=== PATIENT | male | born 1950 | race Caucasian/White ===

== ENCOUNTER 2017-08-13 14:38 | Inpatient (IN) | payer MEDICARE, MEDICAID ==
[~2017-08-13] VITALS: Ht 172.7 cm; Wt 89.3 kg
[~2017-08-13 14:38] MED LIST: ASPI325T PO; EPZITAB4 PO; FURO1TAB93 PO; GABA400C5 PO; LEVO50IN PO; NEXI40CA PO; POTA8TAB27 PO; REST30CA PO; SUST600T4 PO
[2017-08-13 14:48] VITALS: BP 125/69; PULSE 76; RESP 17; TEMP 97.8
[2017-08-13] MEDS ORDERED: SODIUM CHLORIDE 0.9% FLUSH 10 ML FLUSH IVF PRN (15:30)
[2017-08-13 15:51] LABS: AUTOMATED NEUTROPHIL # 4.3 TH/MM3 (1.8-7.7); BASOPHIL % 0.7 % (0.0-2.0); EOSINOPHIL # 0.2 TH/MM3 (0-0.4); EOSINOPHIL % 3.3 % (0.0-4.0); HEMATOCRIT 38.5 % (39.0-51.0); HEMOGLOBIN 13.6 GM/DL (13.0-17.0); LYMPH % 18.4 % (9.0-44.0); LYMPHOCYTE # 1.1 TH/MM3 (1.0-4.8); MEAN CELL VOLUME 101.3 FL (80.0-100.0); MEAN CORPUSCULAR HEMOGLOBIN 35.9 PG (27.0-34.0); MEAN CORPUSCULAR HGB CONC 35.5 % (32.0-36.0); MEAN PLATELET VOLUME 8.1 FL (7.0-11.0); MONO % 7.9 % (0.0-8.0); MONOCYTE # 0.5 TH/MM3 (0-0.9); NEUT % 69.7 % (16.0-70.0); PLATELET COUNT 197 TH/MM3 (150-450); RED CELL DISTRIBUTION WIDTH 14.9 % (11.6-17.2); WHITE BLOOD COUNT 6.2 TH/MM3 (4.0-11.0)
[2017-08-13 15:59] VITALS: BP 131/72; PULSE 71; RESP 14; O2SAT 98
[2017-08-13] MEDS ORDERED: DEXTROSE 50% IN WATER 50 ML VIAL(D50) IV PUSH PRN (16:00)
[2017-08-13] MEDS ORDERED: GLUCAGON 1 MG/ML VIAL OTHER PRN (16:00)
[2017-08-13] MEDS ORDERED: SODIUM CHLORIDE 0.9% FLUSH 10 ML FLUSH IV FLUSH PRN ×2 (16:00→16:45)
--- NOTE | 2017-08-13 16:05 | RADRPT ---
EXAM DATE: 08/13/2017 3:48 PM EDT AGE/SEX: 67 years / Male INDICATIONS: LEFT SIDE WEAKNESS CLINICAL DATA: This is the patient's initial encounter. Patient reports that signs and symptoms have been present for 1 day and indicates a pain score of 0/10. MEDICAL/SURGICAL HISTORY: Cerebrovascular disease. Chronic obstructive pulmonary disease. Carcino ma, thyroid. LARYNX CA,HEPC HIV None. RADIATION DOSE: 56.35 CTDI (mGy) COMPARISON: [facility] [place]/O [place]AST, 11/03/2011. . Report was telephoned to Dr. Card via telephone at 4:03 PM. TECHNIQUE: CT of the head without contrast. Using automated exposure control and adjustment of the mA and/or kV according to patient size, radiation dose was kept as low as reasonably achievable to ob tain optimal diagnostic quality images. FINDINGS: Cerebrum: There is mild generalized atrophy and ventricles are normal given the degree of atrophy. M ild periventricular white matter change is present. No midline shift, mass lesion, hemorrhage or acu te infarction. No extraaxial fluid collections are seen. Posterior Fossa: The cerebellum and brainstem demonstrate no acute abnormality. The 4th ventricle is midline. The cerebellopontine angle is within normal limits. Extracranial: The visualized sinuses are clear. Skull: The calvaria is intact. No skull fracture. CONCLUSION: 1. No acute intracranial abnormality is identified. 2. Chronic findings include generalized atrophy and mild to moderate periventricular white matter lo w-attenuation characteristic of chronic microvascular ischemia. These white matter changes have progr essed since the prior study from 2011. Electronically signed by: Aris Michele MD 08/13/2017 4:03 PM EDT
[2017-08-13 16:07] LABS: INTERNATIONAL NORMALIZED RATIO 0.9 RATIO; PROTHROMBIN TIME - PATIENT 9.6 SEC (9.8-11.6)
[2017-08-13] MEDS: ASPIRIN 325 MG TAB PO SCH (16:07)
[2017-08-13] MEDS: CLOPIDOGREL 75 MG TAB PO SCH (16:09)
[2017-08-13] MEDS: SODIUM CHLOR 0.9% 1000 ML INJ 1,000 ML IV SCH (16:09)
--- NOTE | 2017-08-13 16:11 | MB ---
cc: Matthew Navarrete MD, PhD DATE: 08/13/2017 REASON FOR CONSULTATION: Stroke alert. HISTORY OF PRESENT ILLNESS: Mr. Campos is a 67-year-old man who has a history of previous stroke in the past. The patient takes aspirin 1 a day. He states about 3 days ago he began to experience weakness on the left side, the arm and the leg, it became acutely worse. Today around 1 o'clock he came to the ER. A stroke alert was therefore called. NIH stroke scale was 3. PAST MEDICAL HISTORY: He has a history of previous stroke, history of hypothyroidism, history of cancer of the thyroid and larynx, history of anxiety, history of HIV positive, hepatitis B, cataract surgery, thyroidectomy. MEDICATIONS: 1. Slow-K. 2. Lasix. 3. Restoril. 4. Sustiva. 5. Gabapentin. 6. Aspirin 325 mg daily. 7. Nexium. 8. Levothyroxine. 9. Epzicom. ALLERGIES: SULFA. NEUROLOGICAL EXAMINATION: VITAL SIGNS: Blood pressure 125/69, pulse 76, respiratory rate of 17, temperature 97 _ degrees. Higher cortical function is normal. Cranial nerves intact. Motor exam: He has mild weakness on the left arm and left leg rated at 4/5. Normal strength on the right. Reflexes symmetric. CT of the brain, official report is pending. There appears to be chronic ischemic changes, no acute change, no hemorrhage. LABORATORY DATA: Currently pending. ASSESSMENT: Right hemisphere stroke, apparently happening 3 days ago, now with worsening. He is not a TPA candidate because of the timeframe being at least 3 days into the stroke. Also, not a candidate for intervention. His creatinine was 1.9, therefore, would not recommend proceeding with a CT angiogram. RECOMMENDATIONS: Start Plavix 75 mg daily. Continue aspirin for now. We will check MRI/MRA brain, carotid ultrasound, echocardiogram, monitor cardiac telemetry, rule out atrial fibrillation. Also, check a lipid panel. Matthew Navarrete MD, PhD SANDEEP/TL , 03:48 PM , 04:10 PM
[2017-08-13 16:22] LABS: BICARBONATE 24.6 MEQ/L (21.0-32.0); CALCIUM 10.3 MG/DL (8.5-10.1); CREATININE 1.87 MG/DL (0.60-1.30)
[2017-08-13 16:25] LABS: TROPONIN I 0.05 NG/ML (0.02-0.05)
[2017-08-13] MEDS ORDERED: POTA8TAB PO (16:36)
[2017-08-13] MEDS ORDERED: EPZITAB3 PO (16:36)
[2017-08-13] MEDS ORDERED: REST30CA PO (16:36)
[2017-08-13] MEDS ORDERED: NEXI40CA PO (16:36)
[2017-08-13] MEDS ORDERED: ASPI1TAB57 PO (16:36)
[2017-08-13] MEDS ORDERED: SUST600T PO (16:36)
[2017-08-13] MEDS ORDERED: LEVO200T4 PO (16:36)
[2017-08-13] MEDS ORDERED: FURO1TAB60 PO (16:36)
--- NOTE | 2017-08-13 16:37 | PD ---
HPI . Left-sided weakness Chief Complaint: Neuro Symptoms/ Deficits Time Seen by Provider: 15:15 Travel History International Travel<30 days: No Contact w/Intl Traveler<30days: No Traveled to known affect area: No History of Present Illness HPI Patient presents with chief complaint of left-sided weakness. The triage nurse got the history that this is been going on for several days. The patient swears to me that he had the acute onset of symptoms at 1 PM today. However, he has subsequently told the neurologist that his symptoms really did start a few days ago. Nonetheless, he presents with left-sided extremity weakness without facial weakness. He does not have any dysarthria. His symptoms are very mild. He states that he had cleaned his house today and then "collapsed" because of left leg weakness. That is when he decided to come in. PFSH Past Medical History Arthritis: Yes Anxiety: Yes Cancer: Yes (THYROID, LARYNX) Cardiovascular Problems: No Chemotherapy: Yes COPD: Yes Cerebrovascular Accident: Yes (RIGHT SIDE WEAKNESS) Diabetes: No Endocrine: Yes (PARATHYROID REMOVED) Genitourinary: Yes Headaches: Yes Immune Disorder: Yes (HIV POSTIVE, HEP B) Implanted Vascular Access Dvce: Yes Kidney Stones: Yes Musculoskeletal: Yes Neurologic: Yes Psychiatric: Yes Reproductive: No Respiratory: Yes Migraines: No Renal Failure: No Seizures: No Thyroid Disease: Yes (CANCER/ REMOVED) ?: Not Past Surgical History Abdominal Surgery: No Cardiac Surgery: No Ear Surgery: No Endocrine Surgery: Yes (THYROIDECTOMY,(MULTI)) Eye Surgery: Yes (LEFT CATARACT EXTRACT) Genitourinary Surgery: Yes (MULTI ESWL) Gynecologic Surgery: No Oral Surgery: Yes (T & A, BX LARYNX) Pacemaker: No Thoracic Surgery: No Other Surgery: Yes (2 TUMORS REMOVED FROM EACH SIDE OF NECK, PARATHYROID GLAND REMOVAL) Social History Alcohol Use: No Tobacco Use: No Substance Use: No Allergies-Medications (Allergen,Severity, Reaction): Coded Allergies: Sulfa (Sulfonamide Antibiotics) (Unverified Allergy, Severe, TONGUE SWELLS , 08/13/17) Reported Meds & Prescriptions Reported Meds & Active Scripts Active Reported Potassium Chloride ER 8 meq (Potassium Chloride) 8 Meq Tabcr 8 Meq PO DAILY Lasix (Furosemide) 40 Mg Tab 40 Mg PO DAILY Restoril 30 mg (Temazepam) 30 Mg Cap 30 Mg PO HS PRN Sustiva (Efavirenz) 600 Mg Tab 600 Mg PO HS Aspirin 325 mg (Aspirin) 325 Mg Tab 325 Mg PO HS Levothyroxine Sodium 200 Mcg Tab 200 Mcg PO DAILY Nexium (Esomeprazole Magnesium) 40 Mg Cap 40 Mg PO HS Epzicom 600/300 (Abacavir/Lamivudine) Tab 1 Tab PO HS Review of Systems Except as stated in HPI: all other systems reviewed are Neg HENT: Positive: Headaches Physical Exam Narrative GENERAL: Awake and alert and fully oriented. SKIN: warm/dry. HEAD: Normocephalic. Atraumatic. EYES: Pupils equal and round. Extraocular movements are intact. ENT: Mucous membranes pink and moist. NECK: Supple. Full range of motion without pain.. CARDIOVASCULAR: Regular rate and rhythm. RESPIRATORY: No accessory muscle use. Clear to auscultation. Breath sounds equal bilaterally. GASTROINTESTINAL: Abdomen soft. Nontender. Bowel sounds present. Nondistended. MUSCULOSKELETAL: No obvious deformities. Normal muscle tone. NEUROLOGICAL: Awake and alert. Normal wrinkling of his forehead, closing of his eyes, smiling and protruding of his tongue. Muscular strength in the left upper and left lower extremities is slightly diminished compared to the right. I would rated 4/5. PSYCHIATRIC: Appropriate mood and affect; insight and judgment normal. Data Data Last Documented VS Vital Signs Date Time Temp Pulse Resp B/P (MAP) Pulse Ox O2 Delivery O2 Flow Rate FiO2 08/13/17 15:59 99 Room Air 08/13/17 15:59 71 14 131/72 (91) 08/13/17 14:48 97.8 Orders Orders Electrocardiogram (08/13/17 15:17) Prothrombin Time / Inr (Pt) (08/13/17 15:17) Act Partial Throm Time (Ptt) (08/13/17 15:17) Complete Blood Count With Diff (08/13/17 15:17) Basic Metabolic Panel (Bmp) (08/13/17 15:17) Troponin I (08/13/17 15:17) Ct Brain W/O Iv Contrast(Rout) (08/13/17 15:17) Ecg Monitoring (08/13/17 15:17) Iv Access Insert/Monitor (08/13/17 15:17) Oximetry (08/13/17 15:17) Sodium Chloride 0.9% Flush (Ns Flush) (08/13/17 15:30) Diet Npo (08/13/17 Dinner) Activity Bed Rest (08/13/17 ) Type And Screen (08/13/17 15:22) Cta Brain W Iv Contrast W 3d (08/13/17 15:22) Cta Neck W Iv Contrast W 3d (08/13/17 15:22) Consult Neurology (08/13/17 ) Neuro Checks Q2HX12,Q4H (08/13/17 15:22) Nursing Bedside Swallow Assess .ONCE (08/13/17 15:22) NPO (08/13/17 15:22) (Hub Use Only)Inp Phy Cons/Ref (08/13/17 ) Fibrinogen (08/13/17 15:17) I-Stat Profile (08/13/17 15:17) Nih Stroke Scale - Nihss .On admission and discharge (08/13/17 15:48) Neuro Checks Q4H (08/13/17 15:48) Case Management Consult (08/13/17 ) Activity Bed Rest (08/13/17 15:48) Nursing Bedside Swallow Assess .ONCE (08/13/17 15:48) Scd Bilateral/Knee High LILIANE.QSHIFT (08/13/17 15:48) Hemoglobin (Hgb) A1c (08/13/17 15:48) Lipid Profile (08/14/17 06:00) Us Carotid Arteries Comp Bilat (08/13/17 ) Mra Brain W/O Contrast (Cow) (08/13/17 ) Mri Brain W/O Contrast (08/13/17 ) Echo 2d Comp With Doppler (08/13/17 ) Resp Oxygen Nc Stroke (08/13/17 ) ^ Hold Medication (08/13/17 15:48) Sodium Chloride 0.9% Flush (Ns Flush) (08/13/17 21:00) Sodium Chloride 0.9% Flush (Ns Flush) (08/13/17 16:00) Sodium Chlor 0.9% 1000 Ml Inj (Ns 1000 M (08/13/17 15:48) Aspirin (Aspirin) (08/13/17 16:00) Clopidogrel (Plavix) (08/13/17 16:00) Bedside Glucose LILIANE.CSUGAR (08/13/17 15:48) ^ Discontinue Insulin Orders (08/13/17 15:48) Insulin Aspart Supplemtl Scale (Novolog (08/13/17 17:00) Dextrose 50% In Fabiano (Vial) Inj (D50w (Vi (08/13/17 16:00) Glucagon Inj (Glucagon Inj) (08/13/17 16:00) Consult Rehab Medicine (08/13/17 15:48) Machine Farmworker / Telemetry LILIANE.Q8H (08/13/17 15:48) Consult Stroke Navigator (08/13/17 ) (Hub Use Only)Inp Phy Cons/Ref (08/13/17 ) Labs Laboratory Tests Test 08/13/17 15:24 White Blood Count 6.2 TH/MM3 Red Blood Count 3.80 MIL/MM3 Hemoglobin 13.6 GM/DL Bedside Hemoglobin 12.2 G/DL Hematocrit 38.5 % Bedside Hematocrit 36.0 % Mean Corpuscular Volume 101.3 FL Mean Corpuscular Hemoglobin 35.9 PG Mean Corpuscular Hemoglobin Concent 35.5 % Red Cell Distribution Width 14.9 % Platelet Count 197 TH/MM3 Mean Platelet Volume 8.1 FL Neutrophils (%) (Auto) 69.7 % Lymphocytes (%) (Auto) 18.4 % Monocytes (%) (Auto) 7.9 % Eosinophils (%) (Auto) 3.3 % Basophils (%) (Auto) 0.7 % Neutrophils # (Auto) 4.3 TH/MM3 Lymphocytes # (Auto) 1.1 TH/MM3 Monocytes # (Auto) 0.5 TH/MM3 Eosinophils # (Auto) 0.2 TH/MM3 Basophils # (Auto) 0.0 TH/MM3 CBC Comment DIFF FINAL Differential Comment Prothrombin Time 9.6 SEC Prothromb Time International Ratio 0.9 RATIO Activated Partial Thromboplast Time 26.5 SEC Fibrinogen 392 mg/dL Bedside Sodium 142 MMOL/L Blood Urea Nitrogen 23 MG/DL Creatinine 1.87 MG/DL Random Glucose 108 MG/DL Calcium Level 10.3 MG/DL Sodium Level 143 MEQ/L Potassium Level 3.1 MEQ/L Chloride Level 109 MEQ/L Carbon Dioxide Level 24.6 MEQ/L Bedside Potassium 3.1 MMOL/L Bedside Chloride 109 MMOL/L Anion Gap 9 MEQ/L Bedside Blood Urea Nitrogen 24 MG/DL Bedside Creatinine 1.9 MG/DL Estimat Glomerular Filtration Rate 36 ML/MIN Bedside Glucose 108 MG/DL Troponin I 0.05 NG/ML MDM Medical Decision Making Medical Screen Exam Complete: Yes Emergency Medical Condition: Yes Differential Diagnosis Differential diagnosis includes but is not limited to TIA, CVA, brain tumor, migraine, anxiety Narrative Course This patient presents with left-sided weakness. I gave him an NIH stroke score of 3. A stroke alert was called because he told me that his symptoms started 2 hours prior to presentation. The patient was evaluated urgently by Dr. Navarrete. Dr. Navarrete recommends aspirin and Plavix. He has ordered these. Last Impressions Head CT 08/13/17 1517 Signed Impressions: CONCLUSION: 1. No acute intracranial abnormality is identified. 2. Chronic findings include generalized atrophy and mild to moderate periventr icular white matter low-attenuation characteristic of chronic microvascular isc hemia. These white matter changes have progressed since the prior study from 28 02. CBC & BMP Diagram 08/13/17 15:24 Calcium Level 10.3 H I will give him a dose of oral potassium. Critical Care Narrative Aggregate critical care time was 45 minutes. Time to perform other separately billable procedures was not included in the critical care time. My time did not include minutes spent treating any other patients simultaneously or on activities that did not directly contribute to the patient's treatment. The services I provided to this patient were to treat and/or prevent clinically significant deterioration due to stroke alert I provided critical care services requiring my management, as noted below: Chart data review, documentation time, medication orders and management, vital sign assessments/reviewing monitor data, ordering and reviewing lab tests, ordering and interpreting/reviewing x-rays and diagnostic studies, care of the patient and discussion of the patient with the admitting physicians Physician Communication Physician Communication Dr. Navarrete and Dr. Gaming Diagnosis Primary Impression: CVA (cerebral vascular accident) Qualified Codes: I63.9 - Cerebral infarction, unspecified Admitting Information Admitting Physician Requests: Observation Condition: Stable Rehana Card MD Aug 13, 2017 16:37
--- NOTE | 2017-08-13 16:43 | HHI.HP ---
[facility] Tonja Knutson MD Admission Diagnosis Diagnoses: (1) Left-sided weakness (2) TIA (transient ischemic attack) (3) Neurological deficit present Chief Complaint: My left-sided got weaker Travel History International Travel<30 Days: No Contact w/Intl Traveler <30 Da: No Traveled to Known Affected Are: No History of Present Illness 67-year-old male with a history of HIV presented to the ED for evaluation of worsening symptoms of left-sided weakness including upper and lower extremities without any slurred speech. Patient states, over the past 3 days he has noted his left arm and leg to be weak however he has not seek any medical medical attention and patient has been able to ambulate until today when around 1 PM it got weaker to the point where patient collapsed because his left leg gave up on him. He denies any numbness associated with current symptom. However he reported some visual changes. When he presented to the ED a stroke alert was called, and neurology was consulted. Initial head CT without any intracranial abnormality. Of note, patient has a prior history of CVA but without any residual weakness. Review of Systems Except as stated in HPI: all other systems reviewed are Neg Past Family Social History Past Medical History Arthritis: Yes Anxiety: Yes Cancer: Yes (THYROID, LARYNX) Cardiovascular Problems: No Chemotherapy: Yes COPD: Yes Cerebrovascular Accident: Yes (RIGHT SIDE WEAKNESS) Endocrine: Yes (PARATHYROID REMOVED) Genitourinary: Yes Headaches: Yes Immune Disorder: Yes (HIV POSITIVE, HEP B) Implanted Vascular Access Dvce: Yes Kidney Stones: Yes Thyroid Disease: Yes (CANCER/ REMOVED) Past Surgical History Abdominal Surgery: No Cardiac Surgery: No Ear Surgery: No Endocrine Surgery: Yes (THYROIDECTOMY,(MULTI)) Eye Surgery: Yes (LEFT CATARACT EXTRACT) Genitourinary Surgery: Yes (MULTI ESWL) Gynecologic Surgery: No Oral Surgery: Yes (T & A, BX LARYNX) Pacemaker: No Thoracic Surgery: No Other Surgery: Yes (2 TUMORS REMOVED FROM EACH SIDE OF NECK, PARATHYROID GLAND REMOVAL) Reported Medications Potassium Chloride ER 8 meq (Potassium Chloride) 8 Meq Tabcr 8 Meq PO DAILY Lasix (Furosemide) 40 Mg Tab 40 Mg PO DAILY Restoril 30 mg (Temazepam) 30 Mg Cap 30 Mg PO HS PRN Sustiva (Efavirenz) 600 Mg Tab 600 Mg PO HS Aspirin 325 mg (Aspirin) 325 Mg Tab 325 Mg PO HS Levothyroxine Sodium 200 Mcg Tab 200 Mcg PO DAILY Nexium (Esomeprazole Magnesium) 40 Mg Cap 40 Mg PO HS Epzicom 600/300 (Abacavir/Lamivudine) Tab 1 Tab PO HS Allergies: Coded Allergies: Sulfa (Sulfonamide Antibiotics) (Unverified Allergy, Severe, TONGUE SWELLS , 08/13/17) Family History Denies any family history of heart disease, CVA Social History Alcohol Use: No Tobacco Use: No Substance Use: No Physical Exam Vital Signs Vital Signs Date Time Temp Pulse Resp B/P (MAP) Pulse Ox O2 Delivery O2 Flow Rate FiO2 08/13/17 15:59 99 Room Air 08/13/17 15:59 71 14 131/72 (91) 98 Room Air 08/13/17 14:48 97.8 76 17 125/69 (87) Physical Exam GENERAL: This is a well-nourished, well-developed patient, in no apparent distress. SKIN: No rashes, ecchymoses or lesions. Cool and dry. HEAD: Atraumatic. Normocephalic. No temporal or scalp tenderness. EYES: Pupils equal round and reactive. Extraocular motions intact. No scleral icterus. No injection or drainage. ENT: Nose without bleeding, purulent drainage or septal hematoma. Throat without erythema, tonsillar hypertrophy or exudate. Uvula midline. Airway patent. NECK: Trachea midline. No JVD or lymphadenopathy. Supple, nontender, no meningeal signs. CARDIOVASCULAR: Regular rate and rhythm without murmurs, gallops, or rubs. RESPIRATORY: Clear to auscultation. Breath sounds equal bilaterally. No wheezes , rales, or rhonchi. GASTROINTESTINAL: Abdomen soft, non-tender, nondistended. No hepato-splenomegaly , or palpable masses. No guarding. MUSCULOSKELETAL: Extremities without clubbing, cyanosis, or edema. No joint tenderness, effusion, or edema noted. No calf tenderness. Negative Homans sign bilaterally. NEUROLOGICAL: Awake and alert. Cranial nerves II through XII intact. Motor and sensory grossly within normal limits. Five out of 5 muscle strength in all muscle groups in the right. 3/5 in all muscle group tested in the left. Normal speech. Laboratory Laboratory Tests Test 08/13/17 15:24 White Blood Count 6.2 Red Blood Count 3.80 Hemoglobin 13.6 Bedside Hemoglobin 12.2 Hematocrit 38.5 Bedside Hematocrit 36.0 Mean Corpuscular Volume 101.3 Mean Corpuscular Hemoglobin 35.9 Mean Corpuscular Hemoglobin Concent 35.5 Red Cell Distribution Width 14.9 Platelet Count 197 Mean Platelet Volume 8.1 Neutrophils (%) (Auto) 69.7 Lymphocytes (%) (Auto) 18.4 Monocytes (%) (Auto) 7.9 Eosinophils (%) (Auto) 3.3 Basophils (%) (Auto) 0.7 Neutrophils # (Auto) 4.3 Lymphocytes # (Auto) 1.1 Monocytes # (Auto) 0.5 Eosinophils # (Auto) 0.2 Basophils # (Auto) 0.0 CBC Comment DIFF FINAL Differential Comment Prothrombin Time 9.6 Prothromb Time International Ratio 0.9 Activated Partial Thromboplast Time 26.5 Fibrinogen 392 Bedside Sodium 142 Blood Urea Nitrogen 23 Creatinine 1.87 Random Glucose 108 Calcium Level 10.3 Sodium Level 143 Potassium Level 3.1 Chloride Level 109 Carbon Dioxide Level 24.6 Bedside Potassium 3.1 Bedside Chloride 109 Anion Gap 9 Bedside Blood Urea Nitrogen 24 Bedside Creatinine 1.9 Estimat Glomerular Filtration Rate 36 Bedside Glucose 108 Troponin I 0.05 Result Diagram: 08/13/17 1524 08/13/17 1524 Imaging Last Impressions Head CT 08/13/17 1517 Signed Impressions: CONCLUSION: 1. No acute intracranial abnormality is identified. 2. Chronic findings include generalized atrophy and mild to moderate periventr icular white matter low-attenuation characteristic of chronic microvascular isc hemia. These white matter changes have progressed since the prior study from 28 02. Septic Shock Reassessment Septic shock perfusion: reassessment completed Caprini VTE Risk Assessment Caprini VTE Risk Assessment: Mod/High Risk (score >= 2) Caprini Risk Assessment Model Point Value = 1 Point Value = 2 Point Value = 3 Point Value = 5 Age 41-60 Minor surgery BMI > 25 kg/m2 Swollen legs Varicose veins or History of unexplained or recurrent spontaneous Oral contraceptives or hormone replacement Sepsis (< 1 month) Serious lung disease, including pneumonia (< 1 month) Abnormal pulmonary function Acute myocardial infarction Congestive heart failure (< 1 month) History of inflammatory bowel disease Medical patient at bed rest Age 61-74 Arthroscopic surgery Major open surgery (> 45 min) Laparoscopic surgery (> 45 min) Malignancy Confined to bed (> 72 hours) Immobilizing plaster cast Central venous access Age >= 75 History of VTE Family history of VTE Factor V Leiden Prothrombin [id number] Lupus anticoagulant Anticardiolipin antibodies Elevated serum homocysteine Heparin-induced thrombocytopenia Other congenital or acquired thrombophilia Stroke (< 1 month) Elective arthroplasty Hip, pelvis, or leg fracture Acute spinal cord injury (< 1 month) Prophylaxis Regimen Total Risk Factor Score Risk Level Prophylaxis Regimen 0-1 Low Early ambulation 2 Moderate Order ONE of the following: *Sequential Compression Device (SCD) *Heparin 5000 units SQ BID 3-4 Higher Order ONE of the following medications: *Heparin 5000 units SQ TID *Enoxaparin/Lovenox 40 mg SQ daily (WT < 150 kg, CrCl > 30 mL/min) *Enoxaparin/Lovenox 30 mg SQ daily (WT < 150 kg, CrCl > 10-29 mL/min) *Enoxaparin/Lovenox 30 mg SQ BID (WT < 150 kg, CrCl > 30 mL/min) AND/OR *Sequential Compression Device (SCD) 5 or more Highest Order ONE of the following medications: *Heparin 5000 units SQ TID (Preferred with Epidurals) *Enoxaparin/Lovenox 40 mg SQ daily (WT < 150 kg, CrCl > 30 mL/min) *Enoxaparin/Lovenox 30 mg SQ daily (WT < 150 kg, CrCl > 10-29 mL/min) *Enoxaparin/Lovenox 30 mg SQ BID (WT < 150 kg, CrCl > 30 mL/min) AND *Sequential Compression Device (SCD) Assessment and Plan Problem List: (1) TIA (transient ischemic attack) ICD Code: G45.9 - Transient cerebral ischemic attack, unspecified (2) Neurological deficit present ICD Code: R29.818 - Other symptoms and signs involving the nervous system (3) Left-sided weakness ICD Code: R53.1 - Weakness Assessment and Plan 67-year-old man with TIA Left-sided weakness Treat per ischemic CVA protocol Patient is not a candidate for TPA Head CT noted and reviewed by me without any intracranial abnormality Check brain MRI/MRA, carotid ultrasound, 2D echo Check lipid profile Start aspirin 325 mg daily and Plavix PT/OT consult for therapy Appreciate input from neurology Place Holter monitoring Acute on chronic kidney disease stage III Gentle IV fluid hydration, monitor BUN and creatinine and avoid all nephrotoxic drug Hypokalemia Replace electrolytes and monitor History of HIV Resume outpatient medications Hypothyroidism Resume Synthroid DVT prophylaxis: Bilateral SCDs Code Status Full code Discussed Condition With Patient, ED physician Panfilo Gaming MD Aug 13, 2017 16:43
[2017-08-13] MEDS ORDERED: METOCLOPRAMIDE HCL 10 MG/2 ML VIAL IV PUSH PRN (16:45)
[2017-08-13] MEDS ORDERED: POTASSIUM CHLORIDE 20 MEQ CONTROLLED RELEASE TAB PO ONE (16:45)
[2017-08-13] MEDS ORDERED: ACETAMINOPHEN 325 MG TAB PO PRN ×2 (16:45)
[2017-08-13] MEDS ORDERED: MAGNESIUM HYDROXIDE SUSP 30 ML CUP PO PRN (16:45)
[2017-08-13] MEDS ORDERED: NALOXONE HCL 0.4 MG/ML AMP IV PUSH PRN (16:45)
[2017-08-13] MEDS ORDERED: RESP: ALBUTEROL 2.5 MG/IPRATROPIUM 0.5 MG NEB (PRN) NEB ×2 (16:45→18:00)
[2017-08-13] MEDS: INSULIN ASPART SUPPLEMENTAL SCALE SQ SCH ×2 (17:00→20:51)
[2017-08-13 17:46] VITALS: BP 133/60; PULSE 66; RESP 14; TEMP 97.2; O2SAT 99
[2017-08-13] MEDS ORDERED: POTASSIUM CHLORIDE 10 MEQ CONTROLLED RELEASE TAB PO ONE (18:00)
[2017-08-13 19:49] VITALS: BP 178/84; PULSE 70; RESP 18; O2SAT 100
[2017-08-13 20:00] VITALS: BP 160/82; PULSE 62; RESP 18; TEMP 98.3; O2SAT 99
--- NOTE | 2017-08-13 20:59 | RADRPT ---
EXAM DATE: 08/13/2017 7:23 PM EDT AGE/SEX: 67 years / Male INDICATIONS: CVA. CLINICAL DATA: This is the patient's initial encounter. Patient reports that signs and symptoms have been present for 1 day and indicates a pain score of 0/10. MEDICAL/SURGICAL HISTORY: Hepatitis B. Hypertension. Carcinoma, thyroid. Thyroidectomy. COMPARISON: No prior [facility] exams available for comparison. TECHNIQUE: Multiplanar, multisequence examination of the brain was performed without contrast. FINDINGS: There are multiple small subcentimeter infarcts predominantly in the posterior right hemisphere invol ving both the occipital lobe and the right parietal lobe. Also several tiny infarcts in the upper lef t parietal lobe. There is no mass effect or midline shift. No hemorrhage is identified. Is no hydroce phalus or abnormal extra-axial fluid. There is moderate chronic ischemic changes in the periventricul ar white matter and mild chronic ischemic changes in the brainstem. CONCLUSION: 1. Numerous small subcentimeter infarcts in the posterior right hemisphere involving the parietal oc cipital lobe and also to a lesser extent in the upper left parietal lobe. No mass effect or hemorrhag e. Electronically signed by: Gareth Saeed MD 08/13/2017 8:58 PM EDT
[2017-08-13] MEDS ORDERED: SODIUM CHLORIDE 0.9% FLUSH 10 ML FLUSH IV FLUSH SCH (21:00)
[2017-08-13] MEDS: SODIUM CHLORIDE 0.9% FLUSH 10 ML FLUSH IV FLUSH SCH (21:04)
--- NOTE | 2017-08-13 21:28 | RADRPT ---
EXAM DATE: 08/13/2017 7:20 PM EDT AGE/SEX: 67 years / Male INDICATIONS: Stroke. CLINICAL DATA: This is the patient's initial encounter. Patient reports that signs and symptoms have been present for 1 day and indicates a pain score of 0/10. MEDICAL/SURGICAL HISTORY: Hepatitis B. Hypertension. Carcinoma, thyroid. Thyroidectomy. COMPARISON: No prior [place] exams available for comparison. TECHNIQUE: 3D [id number] MRA was performed. Source images, multiplanar STS MIP, and 3D volum e MIP reconstructions were reviewed. FINDINGS: There is excellent visualization of the major intracranial arteries out to the second-order branch ve ssels. There is no evidence for aneurysm, vessel truncation or stenosis, and no evidence for vascula r malformation. CONCLUSION: 1. Normal examination for a patient of this age. Electronically signed by: Gareth Saeed MD 08/13/2017 9:26 PM EDT
--- NOTE | 2017-08-13 21:31 | RADRPT ---
EXAM DATE: 08/13/2017 6:40 PM EDT AGE/SEX: 67 years / Male INDICATIONS: Fall at home. History of stroke. Left sided tingling and weakness. CLINICAL DATA: This is the patient's initial encounter. Patient reports that signs and symptoms have been present for 1 day and indicates a pain score of 0/10. MEDICAL/SURGICAL HISTORY: Stroke. Chronic obstructive pulmonary disease. HIV. Thyroid cancer . Peripheral neuropathy. Hepatitis B. Hepatitis C. Carotid endarterectomy. Left cataract extraction. Left eye prosthesis. Larynx biopsy. Parathyroidectomy. Chemotherapy. Radiation therapy. Neck tumor e xcision bilateral. COMPARISON: No prior [place] exams available for comparison. No external comparison. VELOCITY PARAMETERS: ICA/CCA Ratio: Right 2.9 , Left 1.4 ICA: Right 181 cm/sec, Left 182 cm/sec CCA: Right 63 cm/sec, Left 128 cm/sec ECA: Right 237 cm/sec, Left 128 cm/sec Vertebral: Right 68 cm/sec antegrade, Left 122 cm/sec antegrade FINDINGS: PSV ratio on the right is elevated to 2.9. There is elevated peak systolic velocity in both the left and right internal carotid arteries around 180 cm/s. Vertebral artery flows antegrade bilaterally. Th ere is mild to moderate visible plaque formation. CONCLUSION: Elevated peak systolic velocity ratio on the right could indicate a moderate stenosis. There is also elevated peak systolic velocities bilaterally in internal carotid arteries. More accurate degree and location of stenosis would be better evaluated with CTA carotids. Electronically signed by: Gareth Saeed MD 08/13/2017 9:29 PM EDT
[2017-08-14] VITALS: BP 162/85; PULSE 77; RESP 18; TEMP 97.6; O2SAT 98
[2017-08-14 03:42] VITALS: PULSE 66
[2017-08-14 04:00] VITALS: BP 156/74; PULSE 64; RESP 18; TEMP 98.1; O2SAT 98
[2017-08-14 05:27] LABS: AUTOMATED NEUTROPHIL # 3.8 TH/MM3 (1.8-7.7); BASOPHIL % 0.6 % (0.0-2.0); EOSINOPHIL # 0.2 TH/MM3 (0-0.4); EOSINOPHIL % 3.8 % (0.0-4.0); HEMATOCRIT 36.8 % (39.0-51.0); HEMOGLOBIN 12.5 GM/DL (13.0-17.0); LYMPH % 24.6 % (9.0-44.0); LYMPHOCYTE # 1.5 TH/MM3 (1.0-4.8); MEAN CELL VOLUME 101.2 FL (80.0-100.0); MEAN CORPUSCULAR HEMOGLOBIN 34.5 PG (27.0-34.0); MEAN CORPUSCULAR HGB CONC 34.1 % (32.0-36.0); MEAN PLATELET VOLUME 8.5 FL (7.0-11.0); MONO % 7.8 % (0.0-8.0); MONOCYTE # 0.5 TH/MM3 (0-0.9); NEUT % 63.2 % (16.0-70.0); PLATELET COUNT 191 TH/MM3 (150-450); RED BLOOD COUNT 3.63 MIL/MM3 (4.50-5.90); RED CELL DISTRIBUTION WIDTH 14.9 % (11.6-17.2)
[2017-08-14] MEDS ORDERED: LEVOTHYROXINE SODIUM 200 MCG TAB PO SCH (06:00)
[2017-08-14 06:07] LABS: ALT (GPT) 18 U/L (12-78); AST (GOT) 13 U/L (15-37); BICARBONATE 20.1 MEQ/L (21.0-32.0); BLOOD UREA NITROGEN 25 MG/DL (7-18); CALCIUM 9.7 MG/DL (8.5-10.1); CHLORIDE 110 MEQ/L (98-107); CHOLESTEROL 239 MG/DL (120-200); GLOMERULAR FILTRATION RATE 36 ML/MIN (>89); GLUCOSE,RANDOM 101 MG/DL (74-106); SODIUM (NA) 141 MEQ/L (136-145)
[2017-08-14] MEDS: SODIUM CHLOR 0.9% 1000 ML INJ 1,000 ML IV SCH (06:07)
[2017-08-14 06:10] LABS: ALKALINE PHOSPHATASE 180 U/L (45-117); CHOLESTEROL/ HDL RATIO 6.27 RATIO; HDL CHOLESTEROL 38.1 MG/DL (40.0-60.0); LDL CHOLESTEROL 134 MG/DL (0-99); TOTAL BILIRUBIN ADULT 0.2 MG/DL (0.2-1.0); TOTAL PROTEIN 6.2 GM/DL (6.4-8.2); TRIGLYCERIDES 335 MG/DL (42-150)
[2017-08-14] MEDS: INSULIN ASPART SUPPLEMENTAL SCALE SQ SCH (08:00)
[2017-08-14 08:41] VITALS: BP 158/77; PULSE 69; RESP 15; TEMP 98.6; O2SAT 98
[2017-08-14] MEDS ORDERED: ABACAVIR SULFATE 300 MG TAB PO SCH (09:00)
[2017-08-14] MEDS ORDERED: PANTOPRAZOLE SOD 40 MG DELAYED RELEASE TAB PO SCH (09:00)
--- NOTE | 2017-08-14 09:20 | HHI.PR ---
Subjective Remarks in no acute distress. denies pain. left-sided weakness has improved. no new complaints. Objective Vitals Vital Signs Date Time Temp Pulse Resp B/P (MAP) Pulse Ox O2 Delivery O2 Flow Rate FiO2 08/14/17 04:00 98.1 64 18 156/74 (101) 98 08/14/17 03:42 66 08/14/17 00:00 97.6 77 18 162/85 (110) 98 08/13/17 20:31 08/13/17 20:00 98.3 62 18 160/82 (108) 99 08/13/17 19:49 70 18 178/84 (115) 100 Room Air 08/13/17 17:46 97.2 66 14 133/60 (84) 99 Room Air 08/13/17 15:59 99 Room Air 08/13/17 15:59 71 14 131/72 (91) 98 Room Air 08/13/17 14:48 97.8 76 17 125/69 (87) I/O 08/13/17 08/13/17 08/13/17 08/14/17 08/14/17 08/14/17 07:00 15:00 23:00 07:00 15:00 23:00 Intake Total 1000 ml Output Total 250 ml 700 ml Balance -250 ml 300 ml Intake IV Total 1000 ml Output Urine Total 250 ml 700 ml # Bowel Movements 1 Result Diagram: 08/14/17 0350 08/14/17 0350 Imaging Last Impressions Head CT 08/13/17 1517 Signed Impressions: CONCLUSION: 1. No acute intracranial abnormality is identified. 2. Chronic findings include generalized atrophy and mild to moderate periventr icular white matter low-attenuation characteristic of chronic microvascular isc hemia. These white matter changes have progressed since the prior study from 28 02. Head Magnetic Resonance Angiography 08/13/17 0000 Signed Impressions: CONCLUSION: 1. Normal examination for a patient of this age. Carotid Artery Ultrasound 08/13/17 0000 Signed Impressions: PSV ratio on the right is elevated to 2.9. There is elevated peak systolic [place] in both the left and right internal carotid arteries around 180 cm/s. Vert ebral artery flows antegrade bilaterally. There is mild to moderate visible miguelito que formation. CONCLUSION: Elevated peak systolic velocity ratio on the right could indicate a moderate st enosis. There is also elevated peak systolic velocities bilaterally in internal carotid arteries. More accurate degree and location of stenosis would be avi r evaluated with CTA carotids. Brain MRI 08/13/17 0000 Signed Impressions: CONCLUSION: 1. Numerous small subcentimeter infarcts in the posterior right hemisphere inv olving the parietal occipital lobe and also to a lesser extent in the upper lef t parietal lobe. No mass effect or hemorrhage. Objective Remarks GENERAL: This is a well-nourished, well-developed patient, in no apparent distress. CARDIOVASCULAR: Regular rate and regular rhythm without murmurs, gallops, or rubs. RESPIRATORY: Clear to auscultation. Breath sounds equal bilaterally. No wheezes , rales, or rhonchi. GASTROINTESTINAL: Abdomen soft, non-tender, nondistended. Normal, active bowel sounds MUSCULOSKELETAL: Extremities without clubbing, cyanosis, or edema. NEURO: Alert & Oriented x4 to person, place, time, situation. Moves all ext x4 Medications and IVs Inpatient Medications Abacavir Sulfate (Ziagen) 600 mg DAILY PO ; Start 08/14/17 at 09:00 Acetaminophen (Tylenol) 650 mg Q6H PRN PO PAIN SCALE 1 TO 2; Start 08/13/17 at 16:45 Albuterol/ Ipratropium (Duoneb Neb) 1 ampule Q2HR NEB PRN NEB SOB/WHEEZING; Start 08/13/17 at 18:00 Aspirin (Aspirin) 325 mg DAILY PO Last administered on 08/13/17at 16:07; Start at 16:00 Clopidogrel Bisulfate (Plavix) 75 mg DAILY PO Last administered on 08/13/17at 16: 09; Start 08/13/17 at 16:00 Dextrose (D50w (Vial) Inj) 50 ml UNSCH PRN IV PUSH HYPOGLYCEMIA-SEE COMMENTS; Start 08/13/17 at 16:00 Efavirenz (Sustiva) 600 mg HS PO ; Start 08/13/17 at 21:00 Glucagon (Glucagon Inj) 1 mg UNSCH PRN OTHER HYPOGLYCEMIA-SEE COMMENTS; Start 08/13/17 at 16:00 Insulin Aspart (NovoLOG SUPPLEMENTAL SCALE) 1 ACHS SQ ; Start 08/13/17 at 17:00 Lamivudine (Epivir) 300 mg DAILY PO ; Start 08/14/17 at 09:00 Levothyroxine Sodium (Synthroid) 200 mcg DAILY@0600 PO Last administered on 08/14at 06:07; Start 08/14/17 at 06:00 Magnesium Hydroxide (Milk Of Magnrich Liq) 30 ml Q12H PRN PO Mild constipation ; Start 08/13/17 at 16:45 Metoclopramide HCl (Reglan Inj) 5 mg Q6H PRN IV PUSH NAUSEA OR VOMITING; Start 08/13/17 at 16:45 Naloxone HCl (Narcan Inj) 0.4 mg UNSCH PRN IV PUSH SEE LABEL COMMENTS; Start at 16:45 Pantoprazole Sodium (Protonix) 40 mg DAILY PO ; Start 08/14/17 at 09:00 Potassium Chloride (KCl) 60 meq ONCE ONCE PO ; Start 08/13/17 at 18:00; Stop 08/13/17 at 18:30; Status DC Sodium Chloride (NS Flush) 2 ml BID IV FLUSH Last administered on 08/13/17at 21: 04; Start 08/13/17 at 21:00 A/P Problem List: (1) TIA (transient ischemic attack) ICD Code: G45.9 - Transient cerebral ischemic attack, unspecified (2) Neurological deficit present ICD Code: R29.818 - Other symptoms and signs involving the nervous system (3) Left-sided weakness ICD Code: R53.1 - Weakness Assessment and Plan A/P CVA Patient is not a candidate for TPA continue aspirin and plavix- will add statin. echo pending. neurology following. Acute on chronic kidney disease stage III Gentle IV fluid hydration, monitor BUN and creatinine and avoid all nephrotoxic drug Hypokalemia Replaced. History of HIV Resumed outpatient medications Hypothyroidism Resumed Synthroid DVT prophylaxis: Bilateral SCDs Discharge Planning pending w/u and neurology clearance. Jenise Newman MD Aug 14, 2017 09:20
[2017-08-14] MEDS ORDERED: POTASSIUM CHLORIDE 20 MEQ CONTROLLED RELEASE TAB PO ONE (09:30)
[2017-08-14] MEDS: ASPIRIN 325 MG TAB PO SCH (09:48)
[2017-08-14] MEDS: CLOPIDOGREL 75 MG TAB PO SCH (09:48)
[2017-08-14] MEDS: SODIUM CHLORIDE 0.9% FLUSH 10 ML FLUSH IV FLUSH SCH (09:49)
[2017-08-14 10:09] VITALS: O2SAT 98
--- NOTE | 2017-08-14 15:56 | EKG ---
Date Performed: 08/13/2017 Time Performed: 15:54:08 PTAGE: 67 years EKG: Sinus rhythm MINIMAL ST DEPRESSION BORDERLINE ECG Since the PREVIOUS TRACING , no significant change noted PREVIOUS TRACIN09/16/2015 16.41 DOCTOR: Mandy Hatch Interpretating Date/Time 08/14/2017 15:56:15
[2017-08-14 16:26] LABS: HEMOGLOBIN A1C 5.3 % (4.3-6.0)
--- NOTE | 2017-08-14 20:23 | PD.CONS ---
[facility] Service Rehabilitation Medicine Consult Requested By Matthew Navarrete MD Reason for Consult Comprehensive rehabilitation evaluation. Primary Care Physician Tonja Knutson MD History of Present Illness Matthew Campos is a 67-year-old [id number] male admitted to [facility] 08/13/17 with history of left-sided weakness for 3 days. NIH scale was 3. He was ineligible for TPA. Brain MRI showed numerous small subcentimeter infarcts in the posterior right hemisphere in the parietal occipital lobes. Patient was started on Plavix in addition to his pre-existing aspirin due to previous stroke. He feels that his left-sided strength has significantly improved. He denies any cognitive impairments. There are no speech impairments. He denies any difficulty swallowing. His sensation is intact. He is continent of bowel and bladder. He has been working with physical therapy and is independent for transfers and ambulating 120 feet. Review of Systems Constitutional: DENIES: Fatigue Eyes: DENIES: Diplopia Ears, nose, mouth, throat: DENIES: Throat pain Respiratory: DENIES: Shortness of breath Cardiovascular: DENIES: Chest pain Gastrointestinal: DENIES: Abdominal pain Genitourinary: DENIES: Urinary incontinence Integumentary: DENIES: Rash Hematologic/lymphatic: DENIES: Bruising Neurologic: DENIES: Headache, Localized weakness, Speech Problems, Poor Balance Psychiatric: DENIES: Confusion Past Family Social History Allergies: Coded Allergies: Sulfa (Sulfonamide Antibiotics) (Unverified Allergy, Severe, TONGUE SWELLS , 08/13/17) Past Medical History Previous stroke Hypothyroidism Thyroid and larynx cancer Anxiety HIV positive Hepatitis B Past Surgical History Cataract removal Thyroidectomy Family History Noncontributory to the [facility] Social History Prior to admission patient lived alone. His neighbor assists him as needed Exam I&O / VS Vital Signs Date Time Temp Pulse Resp B/P (MAP) Pulse Ox O2 Delivery O2 Flow Rate FiO2 08/14/17 10:09 98 08/14/17 08:41 98.6 69 15 158/77 (104) 98 08/14/17 04:00 98.1 64 18 156/74 (101) 98 08/14/17 03:42 66 08/14/17 00:00 97.6 77 18 162/85 (110) 98 08/13/17 20:31 General: No acute distress Respiratory: Lungs CTA, Non-labored respirations, BS equal Gastrointestinal: Positive Bowel Sounds, Non-Distended Cardiovascular: Normal rate, No edema, Regular Rhythm Skin: No rash Musculoskeletal: No calf tenderness Psychiatric: Cooperative, Appropriate mood & affect Orientation: oriented to Self, oriented to Place, oriented to Time, oriented to Situation Neurologic: Cranial Nerves (Intact 2 through 12), Visual Dejesus (Intact to confrontation testing) Motor: Right Upper Extremity (5/5), Left Upper Extremity (5/5 with mild ulnar drift and slight decrease in fine motor coordination), Right Lower Extremity, Left Lower Extremity (5/5) Sensory Intact to light touch in both upper and lower extremities DTRs: Normal (1+) Babinski: Negative Clonus: Negative Assessment and Plan Diagnosis: (1) Stroke ICD Codes: I63.9 - Cerebral infarction, unspecified Assessment 1. Right hemisphere stroke with left hemiparesis which has significantly improved 2. Previous stroke 3. Hypothyroidism 4. Thyroid and larynx cancer 5. Anxiety 6. HIV positive 7. Hepatitis B Plan 1. Physical therapy has evaluated patient is independent with transfers and gait 120 feet. He is currently not requiring any type of device. Continue to mobilize as tolerated 2. Anticipate discharge home. Patient declines any continued home health services. He feels that his ability to perform ADLs is at baseline. He has a neighbor to assist him as needed 3. Will follow in clinic to address any ongoing rehab needs are identified when patient transitions home Thank you for this consult Conchita Mccauley MD Aug 14, 2017 20:22
[2017-08-14] MEDS ORDERED: ATORVASTATIN 40 MG TAB PO SCH (21:00)
--- NOTE | 2017-08-15 19:36 | HM ---
Date Performed: 08/13/2017 Time Performed: 22:20:00 HOOKUP DATE: 08/13/17 10:20:00 PM Mon ANALYSIS START TIME: 08/13/2017 10:25:00 PM ANALYSIS END TIME: 08/14/2017 12:46:40 PM PATIENT AGE: 67 PATIENT HEIGHT PATIENT WEIGHT DRUG LIST PATIENT DIAGNOSIS: cva TEST NARRATIVE: The patient's average heart rate was 68 BPM. No episodes of tachycardia wer e noted. No episodes of bradycardia were noted. No pauses exceeding 2.0 seconds were noted. 2 ventricular ectopics, which represented < 1% of the total beat count, were noted. The highest vent ricular ectopic frequency occurred from 12:00 AM to 01:00 AM Tue. During this time 1 VE(s) occurred. Ventricular ectopics were observed as 2 isolated beat(s) only. No couplets or runs were noted. 63 supraventricular ectopics, which represented < 1% of the total beat count, were noted. The highe st supraventricular ectopic frequency occurred from 03:00 AM to 04:00 AM Tue. During this time 13 SV E(s) occurred. No episodes of ST depression (defined as -1.0 mm or more) were noted in channel 1. No episodes of ST depression (defined as -1.0 mm or more) were noted in channel 2. No episodes of ST depression (defined as -1.0 mm or more) were noted in channel 3. TEST INTERPRETATION: Sinus rhythm PACs Signed by : Nicole Cha
== END 2017-08-14 13:55 | disposition left against medical advice (07) | DRG 65 ==
LOC: NEPD 14:38 → NEDA 16:41 → UNDOADMIN 17:44 → N05A 20:47 → OBSVTOIN 08-14 09:22
PROVIDERS: ADMIT Internal Medicine; ATTEND Internal Medicine
DX: I63.9 Cerebral infarction, unspecified (principal); G81.94 Hemiplegia, unspecified affecting left nondominant side; J44.9 Chronic obstructive pulmonary disease, unspecified; N18.3 Chronic kidney disease, stage 3 (moderate); F41.9 Anxiety disorder, unspecified; E89.0 Postprocedural hypothyroidism; E87.6 Hypokalemia; R29.703 NIHSS score 3; M19.90 Unspecified osteoarthritis, unspecified site; Z21 Asymptomatic human immunodeficiency virus [HIV] infection status; Z85.21 Personal history of malignant neoplasm of larynx; Z85.850 Personal history of malignant neoplasm of thyroid; Z86.73 Personal history of transient ischemic attack (TIA), and cerebral infarction without residual deficits; Z88.2 Allergy status to sulfonamides; Z92.21 Personal history of antineoplastic chemotherapy
CPT/HCPCS: 70450; 70544; 70551; 80048; 80053; 80061; 82948; 83036; 84484; 85025; 85384; 85610; 85730; 86850; 86900; 86901; 86902; 86920; 86922; 93005; 93225; 93226; 93880; G8987-GP; G8988-GP; J7030